=== PATIENT | female | born 2000 | race Caucasian/White ===

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

== ENCOUNTER 2021-04-04 18:22 | Emergency (ER) | payer OTHER ==
[~2021-04-04] VITALS: Ht 162.6 cm; Wt 49.4 kg
[~2021-04-04 18:22] MED LIST: BUTALB-APAP-CA1 EACH PO; IBUPROFEN 600600 M1 PO; MEDROLDOSEPACK PO
[2021-04-04] MEDS ORDERED: COMPAZINE10 M2 PO (20:54)
[2021-04-04 20:55] VITALS: BP 110/60
== END 2021-04-04 20:55 | disposition home or self-care (01) ==
LOC: M.ERS 18:22
DX: R51.9 Headache, unspecified (principal)